=== PATIENT | male | born 1960 | race Caucasian/White ===

== ENCOUNTER 2017-09-05 14:24 | Emergency (ER) | payer OTHER ==
[~2017-09-05] VITALS: Ht 182.9 cm; Wt 72.6 kg
[2017-09-05 15:25] LABS: Source, Urine Clean Catch
[2017-09-05 15:41] LABS: Appearance, Urine Clear (Clear); Blood, Urine 2+ (Neg); Glucose Qualitative, Urine Neg (Neg); Ketones, Urine 3+ (Neg); Leukocyte Esterase, Urine 1+ (Neg); Nitrite, Urine Neg (Neg); Protein, Urine 3+ (Neg); Specific Gravity, Urine 1.015 (1.003-1.022); Urobilinogen, Urine 3+ (Normal); pH, Urine 6.5 (5.0-8.0)
[2017-09-05 15:48] LABS: Bilirubin, Urine 2+ (Neg); Color, Urine Orange (P-Yellow)
[2017-09-05 15:50] LABS: Bacteria Few /hpf; Mucus Light (0-Heavy); Spermatozoa Mod /hpf; Squamous Epithelial Cells Few /hpf (Few)
== END 2017-09-05 17:33 | disposition home or self-care (01) ==
LOC: ER 14:24
PROVIDERS: Emergency Medicine
DX: R44.1 Visual hallucinations (principal); F15.10 Other stimulant abuse, uncomplicated; F17.200 Nicotine dependence, unspecified, uncomplicated
CPT/HCPCS: 81001; 87086; 99283

== ENCOUNTER 2017-09-05 22:54 | Emergency (ER) | payer OTHER ==
[~2017-09-05] VITALS: Ht 182.9 cm; Wt 74.8 kg
== END 2017-09-05 23:55 | disposition home or self-care (01) ==
LOC: ER 22:54
DX: F22 Delusional disorders (principal); F15.10 Other stimulant abuse, uncomplicated; F17.210 Nicotine dependence, cigarettes, uncomplicated
CPT/HCPCS: 99283

== ENCOUNTER 2017-09-08 01:41 | Inpatient (IN) | payer OTHER ==
[~2017-09-08] VITALS: Ht 182.9 cm; Wt 82.3 kg
[2017-09-08 02:04] LABS: Source, Urine Catheter
[2017-09-08 02:05] LABS: Calcium, Ionized (POC) 0.82 mmol/L (1.10-1.46); Chloride (POC) 93 mmol/L (98-108); Creatinine (POC) 6.2 mg/dL (0.8-1.3); Glucose (ISTAT POC) 248 mg/dL (70-99); Hemoglobin (POC) 14.3 g/dL (13.5-17.5); Potassium (POC) 5.9 mmol/L (3.5-5.5); Sodium (POC) 124 mmol/L (135-148); Total CO2 (POC) 13 mmol/L (21-32)
[2017-09-08 02:15] LABS: International Normalized Ratio 1.23; Prothrombin Time Results 12.9 Sec (9.7-11.5)
[2017-09-08 02:16] LABS: Appearance, Urine Turbid (Clear); Blood, Urine 5+ (Neg); Color, Urine Amber (P-Yellow); Glucose Qualitative, Urine Neg (Neg); Ketones, Urine 1+ (Neg); Leukocyte Esterase, Urine 1+ (Neg); Nitrite, Urine Neg (Neg); Protein, Urine 3+ (Neg); Specific Gravity, Urine 1.025 (1.003-1.022); Urobilinogen, Urine 1+ (Normal)
[2017-09-08 02:18] LABS: BASOPHILS ABSOLUTE AUTO 0.04 K/mm3 (0.00-0.23); BASOPHILS PERCENT AUTO 0 % (0-2); Hematocrit 40.1 % (37.0-53.0); Hemoglobin 13.4 g/dL (13.5-17.5); LYMPHOCYTES ABSOLUTE AUTO 2.11 K/mm3 (0.84-5.20); LYMPHOCYTES PERCENT AUTO 17 % (21-46); MONOCYTES ABSOLUTE AUTO 1.18 K/mm3 (0.16-1.47); MONOCYTES PERCENT AUTO 10 % (4-13); Mean Corpuscular HGB 34.9 pg (26.0-34.0); Mean Corpuscular HGB Conc 33.4 g/dL (31.5-36.5); Mean Corpuscular Volume 104 fL (80-100); Mean Platelet Volume 10.9 fL (9.1-12.4); NRBC ABSOLUTE 0.05 K/mm3 (0.00-0.02); NRBC Auto 0.4 /100 WBC (0.0-0.2); Platelet Count 164 K/mm3 (150-400); RDW Coefficient Variation 12.3 % (11.7-14.2); RDW Standard Deviation 47.8 fL (35.1-46.3); Red Blood Cell Count 3.84 M/mm3 (4.30-5.90); White Blood Cell Count 12.45 K/mm3 (4.00-11.30)
[2017-09-08 02:19] LABS: EOSINOPHILS ABSOLUTE AUTO 0.01 K/mm3 (0.00-0.68); EOSINOPHILS PERCENT AUTO 0 % (0-6); IMMATURE GRAN ABSOLUTE AUTO 0.86 K/mm3 (0.00-0.10); IMMATURE GRAN PERCENT AUTO 7 % (0-1); NEUTROPHILS ABSOLUTE AUTO 8.25 K/mm3 (1.96-9.15); NEUTROPHILS PERCENT AUTO 66 % (41-73)
[2017-09-08 02:28] LABS: U Amphetamine Screen DETECTED; U Barbituate Screen Not Detected; U Methamphetamine Screen DETECTED
[2017-09-08 02:29] LABS: Bilirubin, Urine 1+ (Neg); U Benzodiazapine Screen DETECTED; U Buprenorphine Screen Not Detected; U Cannabinoids Screen Not Detected; U Cocaine Screen Not Detected; U Methadone Screen Not Detected; U Opiates Screen Not Detected; U Oxycodone Screen Not Detected; U Phencyclidine Screen Not Detected; U Propoxyphene Screen Not Detected
[2017-09-08 02:30] LABS: Amorphous Mod (0-Heavy); Bacteria Many /hpf; Red Blood Cells, Urine 0-2 /hpf (0-2); Squamous Epithelial Cells Not Seen /hpf (Few); White Blood Cells, Urine 50-100 /hpf (0-5)
[2017-09-08 02:31] LABS: Granular Casts 0-2 /lpf (0)
[2017-09-08 02:38] LABS: BAND PERCENT MAN 33 % (0-8); BASOPHILS PERCENT MAN 0 % (0-2); EOSINOPHILS PERCENT MAN 0 % (0-6); LYMPHOCYTES ABSOLUTE MAN 2.86 K/mm3 (0.84-5.20); LYMPHOCYTES PERCENT MAN 23 % (21-46); METAMYELOCYTE ABSOLUTE MAN 0.24 K/mm3 (0.00-0.00); METAMYELOCYTE PERCENT MAN 2 % (0-0); MONOCYTES ABSOLUTE MAN 0.62 K/mm3 (0.16-1.47); MONOCYTES PERCENT MAN 5 % (4-13); NEUTROPHILS ABSOLUTE MAN 8.71 K/mm3 (1.96-9.15); SEG NEUTROPHILS PERCENT MAN 37 % (41-73); TOTAL CELLS COUNTED 100
[2017-09-08 02:45] LABS: PCO2 Arterial 33.1 mmHg (35-45); PO2 Arterial 121 mmHg (80-100); pH Blood Arterial 6.99 (7.35-7.45)
[2017-09-08 02:46] LABS: Acetaminophen, Random <2.0 ug/mL (10.0-30.0); Alanine Aminotransfer (ALT/SGP 334 U/L (12-78); Albumin, Blood 3.7 g/dL (3.4-5.0); Albumin/Globulin Ratio 0.9 (0.8-1.8); Alk Phos 143 U/L (50-136); Anion Gap 31 mmol/L (6-16); Aspartate Aminotrans (AST/SGOT 1067 U/L (12-37); Bilirubin, Total 2.5 mg/dL (0.1-1.0); Blood Urea Nitrogen 89 mg/dL (8-24); Bun/Creatinine Ratio 24.2 (12.0-20.0); CO2, Blood 9 mmol/L (21-32); Calcium, Blood 7.8 mg/dL (8.5-10.1); Chloride, Blood 85 mmol/L (98-108); Creatinine, Blood 3.68 mg/dL (0.60-1.20); Ethanol (Alcohol), Blood, Med <3 mg/dL; Globulin, Blood 3.9 g/dL (2.2-4.0); Glomerular Filtration Rate 18 (60-); Glucose, Blood 260 mg/dL (70-99); Salicylate 3.8 mg/dL (2.8-20.0); Sodium, Blood 125 mmol/L (136-145); Total Protein, Blood 7.6 g/dL (6.4-8.2)
[2017-09-08 02:52] LABS: CPK Creatine Kinase 8899 U/L (39-308)
[2017-09-08 02:53] LABS: Creatine Kinase MB 73.9 ng/mL (0.0-3.6); Creatine Kinase MB Index 0.8 (0.0-4.0)
[2017-09-08 05:48] LABS: Hematocrit 34.3 % (37.0-53.0); Hemoglobin 12.1 g/dL (13.5-17.5); Mean Corpuscular HGB 34.8 pg (26.0-34.0); Mean Corpuscular HGB Conc 35.3 g/dL (31.5-36.5); Mean Platelet Volume 10.2 fL (9.1-12.4); Platelet Count 130 K/mm3 (150-400); RDW Coefficient Variation 12.4 % (11.7-14.2); RDW Standard Deviation 44.9 fL (35.1-46.3); Red Blood Cell Count 3.48 M/mm3 (4.30-5.90); White Blood Cell Count 6.71 K/mm3 (4.00-11.30)
[2017-09-08 05:49] LABS: Mean Corpuscular Volume 99 fL (80-100)
[2017-09-08 06:00] LABS: PO2 Arterial 233 mmHg (80-100); pH Blood Arterial 7.25 (7.35-7.45)
[2017-09-08 06:05] LABS: Bun/Creatinine Ratio 17.7 (12.0-20.0); Creatinine, Blood 5.13 mg/dL (0.60-1.20)
[2017-09-08 06:12] LABS: Calcium, Blood 5.5 mg/dL (8.5-10.1)
[2017-09-08 06:18] LABS: BAND PERCENT MAN 22 % (0-8); BASOPHILS PERCENT MAN 0 % (0-2); EOSINOPHILS PERCENT MAN 0 % (0-6); LYMPHOCYTES PERCENT MAN 3 % (21-46); MONOCYTES ABSOLUTE MAN 0.26 K/mm3 (0.16-1.47); MONOCYTES PERCENT MAN 4 % (4-13); NEUTROPHILS ABSOLUTE MAN 6.24 K/mm3 (1.96-9.15); SEG NEUTROPHILS PERCENT MAN 71 % (41-73); TOTAL CELLS COUNTED 100
[2017-09-08 08:40] LABS: PCO2 Arterial 33.7 mmHg (35-45); PO2 Arterial 130 mmHg (80-100); pH Blood Arterial 7.31 (7.35-7.45)
[2017-09-08 09:13] LABS: Anion Gap 16 mmol/L (6-16); Blood Urea Nitrogen 95 mg/dL (8-24); Bun/Creatinine Ratio 18.3 (12.0-20.0); CO2, Blood 20 mmol/L (21-32); Chloride, Blood 97 mmol/L (98-108); Glomerular Filtration Rate 12 (60-); Glucose, Blood 191 mg/dL (70-99); Potassium, Blood 4.5 mmol/L (3.5-5.5); Sodium, Blood 133 mmol/L (136-145)
[2017-09-08 09:25] LABS: Calcium, Blood 5.8 mg/dL (8.5-10.1); Phosphorus, Blood 9.1 mg/dL (2.5-4.9)
[2017-09-08 15:33] LABS: Bun/Creatinine Ratio 18.4 (12.0-20.0); Calcium, Blood 5.6 mg/dL (8.5-10.1); Creatinine, Blood 5.55 mg/dL (0.60-1.20)
[2017-09-09 04:26] LABS: Hematocrit 37.1 % (37.0-53.0); Hemoglobin 12.7 g/dL (13.5-17.5); Mean Corpuscular HGB Conc 34.2 g/dL (31.5-36.5); Mean Corpuscular Volume 100 fL (80-100); Mean Platelet Volume 10.4 fL (9.1-12.4); Platelet Count 98 K/mm3 (150-400); RDW Standard Deviation 47.2 fL (35.1-46.3); Red Blood Cell Count 3.73 M/mm3 (4.30-5.90); White Blood Cell Count 6.13 K/mm3 (4.00-11.30)
[2017-09-09 05:19] LABS: PCO2 Arterial 22.6 mmHg (35-45); PO2 Arterial 90.8 mmHg (80-100); pH Blood Arterial 7.27 (7.35-7.45)
[2017-09-09 05:29] LABS: BAND PERCENT MAN 44 % (0-8); BASOPHILS ABSOLUTE MAN 0.06 K/mm3 (0.00-0.23); BASOPHILS PERCENT MAN 1 % (0-2); EOSINOPHILS PERCENT MAN 0 % (0-6); LYMPHOCYTES ABSOLUTE MAN 0.55 K/mm3 (0.84-5.20); LYMPHOCYTES PERCENT MAN 9 % (21-46); METAMYELOCYTE ABSOLUTE MAN 0.12 K/mm3 (0.00-0.00); METAMYELOCYTE PERCENT MAN 2 % (0-0); MONOCYTES ABSOLUTE MAN 0.73 K/mm3 (0.16-1.47); MONOCYTES PERCENT MAN 12 % (4-13); MYELOCYTE ABSOLUTE MAN 0.06 K/mm3 (0.00-0.00); MYELOCYTE PERCENT MAN 1 % (0-0); NEUTROPHILS ABSOLUTE MAN 4.59 K/mm3 (1.96-9.15); SEG NEUTROPHILS PERCENT MAN 31 % (41-73); TOTAL CELLS COUNTED 100
[2017-09-09 05:37] LABS: Albumin, Blood 2.4 g/dL (3.4-5.0); Anion Gap 21 mmol/L (6-16); Blood Urea Nitrogen 108 mg/dL (8-24); Bun/Creatinine Ratio 15.7 (12.0-20.0); CO2, Blood 12 mmol/L (21-32); Calcium, Blood 5.2 mg/dL (8.5-10.1); Chloride, Blood 106 mmol/L (98-108); Creatinine, Blood 6.86 mg/dL (0.60-1.20); Glomerular Filtration Rate 9 (60-); Glucose, Blood 94 mg/dL (70-99); Phosphorus, Blood 6.8 mg/dL (2.5-4.9); Potassium, Blood 4.7 mmol/L (3.5-5.5); Sodium, Blood 139 mmol/L (136-145); Vancomycin, Random 17.3 ug/mL
== END 2017-09-09 15:03 | DRG 871 ==
LOC: ER 01:41 → ICUW 02:57 → ICUE 02:57
PROVIDERS: Emergency Medicine; Hospitalist; Internal Medicine; Internal Medicine Pulmonary Disease
PROC: 5A1945Z Respiratory Ventilation, 24-96 Consecutive Hours (ICD-10-PCS; principal; 2017-09-08)
PROC: 0BH17EZ Insertion of Endotracheal Airway into Trachea, Via Natural or Artificial Opening (ICD-10-PCS; 2017-09-08)
PROC: 5A12012 Performance of Cardiac Output, Single, Manual (ICD-10-PCS; 2017-09-08)
PROC: 02HV33Z Insertion of Infusion Device into Superior Vena Cava, Percutaneous Approach (ICD-10-PCS; 2017-09-08)
PROC: B548ZZA Ultrasonography of Superior Vena Cava, Guidance (ICD-10-PCS; 2017-09-08)
DX: A41.9 Sepsis, unspecified organism (principal); R65.21 Severe sepsis with septic shock; J96.01 Acute respiratory failure with hypoxia; G93.1 Anoxic brain damage, not elsewhere classified; N17.9 Acute kidney failure, unspecified; M62.82 Rhabdomyolysis; F15.10 Other stimulant abuse, uncomplicated; E87.5 Hyperkalemia; E83.51 Hypocalcemia; F17.210 Nicotine dependence, cigarettes, uncomplicated
CPT/HCPCS: 31500; 31720; 36556; 36600; 51702; 70450; 71045; 74176; 80047; 80048; 80053; 80069; 80202; 81001; 82330; 82550; 82553; 82803; 82947; 83690; 85014; 85025; 85610; 85730; 87086; 92950; 93005; 93010; 94002; 94003; 96374; 96375; 99291; 99292; C1751; C9113; G0480; J0330; J0610; J1265; J1650; J2060; J2270; J2543; J3370; J7030; J7060